=== PATIENT | female | born 1925 | race Caucasian/White ===

== ENCOUNTER → 2016-07-19 | Outpatient (CLI) | payer OTHER, MEDICARE ==
[~2016-07-19] MED LIST: AMIO100T2 PO; ASPI-558 PO; CLOP75TA19 PO; CODE118S2 PO; DEXL60CA9 PO; ESCI20TA PO; FLUT16SP12 NS; GUAI400T65 PO; IPRA0.2S52 AEROSOL; LANS30TA4 SL; LEVO50TA11 PO; LORA10TA62 PO; MELA1TAB12 PO; SENN-85 PO; SIMV10TA76 PO; TRIA1CAP35 PO; [UNRECOGNIZED DRUG - CODE] OP
[2016-07-19 10:36] LABS: BLOOD, URINE NEGATIVE (NEGATIVE); COLOR,URINE AMBER (YELLOW); LEUKOCYTE ESTERASE ,URINE NEGATIVE (NEGATIVE); NITRITE,URINE POSITIVE (NEGATIVE); UROBILINOGEN,URINE 0.2 EU/DL (NORMAL)
[2016-07-19 10:44] LABS: BACTERIA,URINE 4+ (NEGATIVE); RBC,URINE 0-1 /HPF (0-3)
== END ==
LOC: LABN 10:08 → LABN.PM 10:08
PROVIDERS: ATTEND Family Medicine
DX: N39.0 Urinary tract infection, site not specified (principal)
CPT/HCPCS: 81001; 87086; 87088